=== PATIENT | female | born 2000 | race Caucasian/White ===

== ENCOUNTER → 2022-08-10 16:06 | Outpatient (CLI) | payer OTHER, SELFPAY ==
--- NOTE | ~2022-08-10 | XR_ITS ---
EXAM: XR wrist RT 2V DATE: 08/10/2022 16:22 HISTORY: M25.539 - Pain in unspecified wrist . COMPARISON: 08/09/2012. FINDINGS: Normal mineralization. No fracture. Borderline scapholunate widening. Capitolunate angle i s 53 degrees. The scapholunate angle is 28 degrees. No lytic or blastic lesion. Joint spaces are main tained. No erosion or periosteal change. Soft tissues within normal limits. IMPRESSION: Radiographic findings as can be seen with scapholunate dissociation and volar intercalate d segmental instability. Consider MR arthrography of the wrist for further evaluation. Reviewed, dictated and finalized at location K. M[facility] OPERATOR IMPRESSION: Radiographic findings as can be seen with scapholunate dissociation and volar intercalated segmental instability. Consider MR arthrography of the wrist for further evaluation.
== END ==
PROVIDERS: PCP Internal Medicine; Visit Provider Internal Medicine
DX: M25.531 Pain in right wrist (principal)
CPT/HCPCS: 73100

== ENCOUNTER 2023-04-04 13:48 | Outpatient (CLI) | payer OTHER, SELFPAY ==
--- NOTE | 2023-04-07 20:47 | P.PCNHOL_ITS ---
Holter/Event Monitor Holter/Event Monitor Date of procedure: 04/07/23 Holter/Event Procedure: 48 Hr Holter Monitor Diagnosis: Palpitation Indications: 23-year-old female with palpitations Image/Tracing Quality: Good Finding: The patient was monitored for 48 hours. The underlying rhythm was sinus with an average heart rate of 82 BPM (range 52-160 BPM). There were no PVCs only 1 APC noted. There is no atrial fibrillation, SVT, ventricular tachycardia, heart block or pauses. The patient is admitted 12 rhythm strips for symptoms primarily of flutters heart jumping and increased heart rate but sometimes for dizziness, shortness of breath and chest tightness. These were also sedated with sinus rhythm with heart rates in the 60s up to 109 beats per minute. No associated arrhythmias. Conclusion: Unremarkable 48 hour Holter monitor. The patient's symptoms do not correlate with any arrhythmias other than occasionally with sinus tachycardia.
== END 2023-04-04 13:49 | disposition home or self-care (01) ==
PROVIDERS: PCP Physician Assistant; Visit Provider Physician Assistant
DX: R00.2 Palpitations (principal)
CPT/HCPCS: 93225; 93226

== ENCOUNTER 2023-05-18 15:05 | Outpatient (CLI) | payer OTHER, SELFPAY ==
--- NOTE | 2023-05-18 15:15 | ECHO_ITS ---
Patient Info Name: Sakina Shaw Age: 23 years : 2000 Gender: Female Ht: 62 in Wt: 120 lbs BSA: 1.55 m2 HR: 81 bpm BP: 119 / 77 mmHg Technical Quality: Fair Exam Date: 05/18/2023 3:25 PM Exam Location: [facility] Patient Status: Outpatient Admit Date: 05/18/2023 Staff Ordering Physician: Ciro Hernandez PA-C [employer]it[employer] Operator: Allegra Mcclelland RDCS Attending Provider: Ciro Hernandez PA-C Referring Physician: Mary WINKLER; Exam Type: CA echo doppler color flow Study Info Indications - palpitations Complete two-dimensional, color flow and Doppler transthoracic echocardiogram is performed. Summary 1. Complete two-dimensional, color flow and Doppler transthoracic echocardiogram is performed. 2. Left ventricular chamber dimension is normal. 3. Left ventricular systolic function is normal, estimated at 60-65%. 4. The left ventricular diastolic function is normal. 5. E/e' 7 is not elevated. 6. There is trace mitral valve regurgitation. 7. There is trace tricuspid valve regurgitation. 8. No pulmonary hypertension, estimated pulmonary arterial systolic pressure is 26 mmHg. Left Ventricle E/e' 7 is not elevated. Left ventricular chamber dimension is normal. Left ventricular systolic function is normal, estimated at 60-65%. The left ventricular diastolic function is normal. Right Ventricle Right ventricular chamber dimension is normal. Right ventricular systolic function is normal. Left Atria Left atrial chamber dimension is normal. Right Atria Right atrial chamber dimension is normal. Aortic Valve The aortic valve is trileaflet. There is no aortic valve stenosis. There is no aortic valve regurgitation. Pulmonic Valve There is no pulmonic regurgitation. Mitral Valve There is no mitral valve stenosis. There is trace mitral valve regurgitation. Tricuspid Valve There is trace tricuspid valve regurgitation. No pulmonary hypertension, estimated pulmonary arterial systolic pressure is 26 mmHg. Pericardium/Pleural There is no pericardial effusion. Inferior Vena Cava Normal inferior vena cava with >50% collapse upon inspiration consistent with normal right atrial pressure, 5 mmHg. Aorta The aortic root size at the sinus of Valsalva is normal. Left Ventricular Outflow Tract Name Value Normal LVOT 2D LVOT Diameter 2.0 cm LVOT Doppler LVOT Peak Gradient 4 mmHg LVOT Mean Gradient 2 mmHg LVOT VTI 19 cm LVOT VTI/AV VTI Ratio 0.9 LVOT Stroke Volume 57 ml LVOT CO 12.8 l/min LVOT CI 8.3 l/min/m2 Pulmonic Valve Name Value Normal PV Doppler PV Peak Gradient 2 mmHg Mitral Valve Name Value
== END 2023-05-18 15:06 | disposition home or self-care (01) ==
PROVIDERS: PCP Physician Assistant; Visit Provider Physician Assistant
DX: R00.2 Palpitations (principal); I34.0 Nonrheumatic mitral (valve) insufficiency; I07.1 Rheumatic tricuspid insufficiency
CPT/HCPCS: 93306

== ENCOUNTER 2025-08-18 18:32 | Emergency (ER) | payer OTHER, SELFPAY ==
[2025-08-18 18:46] VITALS: BP 96/49; PULSE 102; RESP 18; TEMP 37.9; O2SAT 100
[2025-08-18 18:55] LABS: EDSTREPNEGPOS1 Negative (Negative)
--- NOTE | 2025-08-18 18:59 | ED.URI ---
HPI - URI/Sore Throat General Chief Complaint: Upper Respiratory Infection Stated Complaint: Fever patient [facility] to the [facility] accompanied by mother with complaints of fever, chills, body aches, nausea, sore throat, nasal congestion, and headache that began yesterday. NyQuil taken at home with some relief of symptoms. Upon arrival at [facility] patient feeling significantly worse. denies abdominal pain, nausea, vomiting, diarrhea, Dizziness, difficulty swallowing. Related Data Home Medications ?Medication ?Instructions ?Recorded ?Confirmed ?Last Taken ?Type No Home Medications 04/12/22 08/18/25 Unknown History Allergies Allergy/AdvReac Type Severity Reaction Status Date / Time No Known Allergies Allergy Mild Verified 08/18/25 18:38 Review of Systems Constitutional: Constitutional: Reports as per HPI, Reports chills, Reports fatigue, Reports fever(s) and Denies weakness Eyes: Eyes: Reports no additional eye complaints ENT: Reports as per HPI, Denies vertigo, Denies dizziness, Reports nasal congestion and Reports sore throat Cardiovascular: Cardiovascular: Reports no additional cardiovascular complaints Respiratory: Respiratory: Reports as per HPI, Reports chest congestion, Reports cough, Denies dyspnea and Denies wheezing Gastrointestinal: Gastrointestinal: Reports as per HPI, Denies abdominal pain, Reports nausea and Reports vomiting Comments: nausea and vomiting after strep swab while at [facility] Genitourinary: Genitourinary: Reports no additional female genitourinary complaints Musculoskeletal: Musculoskeletal: Reports as per HPI, Denies back pain and Reports myalgias Integumentary/Breasts: Skin/Breast: Reports as per HPI, Denies erythema, Denies rash and Denies skin ulcer Neurologic: Reports as per HPI, Denies vertigo, Denies dizziness, Reports headache(s) and Denies weakness Psychiatric: Psychiatric: Reports no additional psychiatric complaints Endocrine: Endocrine: Reports no additional endocrine complaints Hematologic/Lymphatic: Hematologic/Lymphatic: Reports no additional hematologic/lymphatic complaints Allergic/Immunologic: Allergic/Immunologic: Reports no additional allergic/immunologic complaints [facility] Past Medical History Medical History Chest pain Shortness of breath Family History Family History Father Anxiety Cardiac arrhythmia Grandparent Breast cancer Social History Social History Smoking status: Never smoker Alcohol intake: current Alcohol use details: few times a month (3-8) usually only one drink Lack of Transportation: No Lack of Food: Never True Current Housing: I Have Housing Concerned About Future Housing: No Difficulty Paying Gas/Electric Bills: No Difficulty Paying for Meds: No Currently Unemployed: No Education: High School Diploma/GED Difficulty w/ Childcare or Family Care: No Exam Const: General: healthy appearing and no acute distress Nutritional Appearance: well nourished Orientation/consciousness: patient oriented x3 Limitations: no limitations HENMT: Head: normal to inspection Ears: external ears normal and TM's normal bilaterally Face/Nose/Sinus: Normal external nose present and Normal nares present Face and sinus: normal facial exam and sinuses nontender Mouth: Yes Normal oral and palatal mucosa present, Yes lip normal and Yes moist mucous membranes Throat: posterior oropharynx normal Neck: Neck: normal visual inspection and no lymphadenopathy Resp: Effort & Inspection: normal respiratory effort Auscultation: clear to auscultation bilaterally Cardio: Rate: regular rate Rhythm: regular rhythm GI: Inspection: non-distended GI Palp: Yes Soft to palpation, No Tenderness to palpation present (GI), No Guarding due to palpation present (GI), No Rigid due to palpation and No Hernia present Auscultation: normal bowel sounds Skin: General skin exam: pallor Rashes: no rashes Wounds: no wounds Neuro: General: patient oriented x3 Cranial nerves: Yes Nystagmus not present Speech: normal speech Gait exam (Neuro): Normal gait present Extrem: General: normal to inspection and no clubbing, cyanosis or edema Psych: Mental Status: mental status grossly normal Affect: normal affect Attitude: cooperative Course Course Level of Care: [facility] Visit Vital Signs Vital signs: Vital Signs Temperature 100.3 F H 08/18/25 18:46 Pulse Rate 102 H 08/18/25 18:46 Respiratory Rate 18 08/18/25 18:46 Blood Pressure 96/49 L 08/18/25 18:46 Pulse Oximetry 100 08/18/25 18:46 Oxygen Delivery Room Air 08/18/25 18:46 Temperature 100.3 F H 08/18/25 18:46 Pulse Rate 102 H 08/18/25 18:46 Respiratory Rate 18 08/18/25 18:46 Blood Pressure 96/49 L 08/18/25 18:46 Pulse Oximetry 100 08/18/25 18:46 Oxygen Delivery Room Air 08/18/25 18:46 [facility] Narrative Medical decision making narrative: flu, strep, COVID testing in [facility] today. Nausea vomiting due to strep swab no symptoms reported of this at home positive COVID The patient was evaluated by myself in the express care. History is obtained from patient who is an independent historian and physical exam was performed. Available medical records were reviewed at this time. Exam findings show no acute concerns or changes; patient is non-toxic appearing and is in no distress. Patient is appropriate for outpatient treatment and follow-up. I have evaluated and discussed social determinants of health with the patient that could potentially impact subsequent diagnosis and treatment plans. Differential diagnosis and treatment plan were discussed with the patient. Patient agrees with discussion and after shared medical decision making agrees with plan of care. All questions were answered to the patient's satisfaction. Differential Diagnosis Differential Diagnosis: COVID, flu, strep, upper respiratory infection, pharyngitis. Medical Records I have reviewed the following patient records and this information was taken into consideration when formulating the assessment and plan.: previous labs, previous ER visits, previous hospitalizations and previous clinic visits Lab Data [facility] Lab Attestation statement: I personally reviewed the patient's lab results. Lab results narrative: COVID positive strep negative will send culture Labs: Lab Results 08/18/25 Range/Units 18:53 POC Grp A Strep Screen Negative (Negative) Discharge Plan Discharge Clinical Impression: COVID Patient Disposition: Home Condition: Stable Instructions: Antibiotic Form, How To Wash Your Hands (ED), Cold Symptoms (ED), COVID-19 (Coronavirus Disease 2019) (ED) Additional Instructions: Viral illness may last between 7-12days; antibiotic is NOT recommended at this time. Recommend antihistamine such as Benadryl at night time and Claritin/Zyrtec/Lauryn during the day. Also using steroid nasal spray like Flonase can help with symptoms and congestion. Using sudafed for significant congestion will also give some relief. Cough syrup may cause drowsiness; avoid driving or take it at night time. Use inhaler as needed for cough, wheezing, shortness of breath or chest tightness. Also, recommend symptomatic treatment includes: rest, fluids, increase humidity of the air at home. Recommend Acetaminophen or nonsteroidal anti-inflammatory agents(NSAIDs) as directed in the bottle to reduce fever and/pain/headache. Avoid smoking/second-hand smoke. Limit visits to areas with large crowds. Frequent hand washing or hand inventory and pricing associate is one of the best ways to prevent spread of infection. Please schedule a followup visit with your personal physician for further evaluation and treatment within 3-5days. Including recheck and discussion of your blood pressure. If your symptoms persist, change or worsen significantly before you can contact your personal physician then please, without delay, go to the emergency department for further evaluation. Patient Language: Bulgarian Prescriptions: No Action No Home Medications Follow-up/Referrals: Herman Marquez, [Primary Care Provider, Internal Medicine] Stand Alone Forms: Work/School Release IP Time of Disposition: 19:07
[2025-08-18 19:03] LABS: EDCOVIDSCREEN Positive (Negative); EDINFLUASCREEN Negative (Negative); EDINFLUBSCREEN Negative (Negative)
== END 2025-08-18 19:09 | disposition home or self-care (01) ==
PROVIDERS: Emergency Provider Nurse Practitioner Family; PCP Internal Medicine
DX: U07.1 COVID-19 (principal)
CPT/HCPCS: 87081; 87426; 87804; 87880; 99213; G0463